=== PATIENT | female | born 1985 | race Caucasian/White ===

== ENCOUNTER 2019-03-19 06:37 | Observation (INO) | payer BC ==
[~2019-03-19] VITALS: Ht 157.5 cm; Wt 104.1 kg
[2019-03-20 09:22] VITALS: BP 112/80
== END 2019-03-20 10:35 | disposition home or self-care (01) ==
LOC: OUT 06:37 → 4NOR 10:54 → OUT 11:04 → DCLOUNGE 03-20 10:28
PROVIDERS: ADMIT Otolaryngology; ATTEND Otolaryngology
DX: J03.01 Acute recurrent streptococcal tonsillitis (principal)
CPT/HCPCS: 42821; 81025; 88304; G0378; J1100; J2250; J2405; J2704; J2710; J3010